=== PATIENT | female | born 1970 | race American Indian/Alaskan Native ===

== ENCOUNTER 2018-03-10 16:49 | Emergency (ER) | payer SELFPAY ==
[2018-03-10 17:32] VITALS: BP 105/67
[2018-03-10 18:18] LABS: Bilirubin,Urine NEG (Negative); Blood,Urine NEG (Negative); Color,Urine Amber (Yellow); Mucus,Urine 1+ /HPF
== END 2018-03-10 19:20 | disposition left against medical advice (07) ==
LOC: ED 16:49
DX: R10.9 Unspecified abdominal pain (principal); Z53.21 Procedure and treatment not carried out due to patient leaving prior to being seen by health care provider
CPT/HCPCS: 81001

== ENCOUNTER 2018-06-10 13:24 | Emergency (ER) | payer OTHER ==
[2018-06-10 13:59] VITALS: BP 126/74
--- NOTE | 2018-06-10 14:02 | Emergency Department Report ---
Chief Complaint: Abdominal Pain Stated Complaint: ABD LOWER PAIN/BARIATRIC PATIENT Time Seen by Provider: 06/10/18 13:58 - HPI History of Present Illness: pt presents with LLQ abd pain and epigastric abd pain no N/V/D no fever foul smelling urine denies dysuria vaginal discharge states it is white no itching, burning, lesions hx of STD- chlamydia and gonorrhea pt is sexually active, pt is with a new partner no PMHx PSHx gastric bypass, hysterecomy, and cholecystecomy MSE screening note: Focused history and physical exam performed. Due to findings the following was ordered: CBC, CMP, lipase, wet prep, UA, G/C, and CT abd/pelvis with IV contrast ED Disposition for MSE Condition: Stable Instructions: Abdominal Pain (ED)
[2018-06-10 14:31] LABS: Basophils # (Auto) 0.1 K/mm3 (0.0-0.1); Basophils % (Auto) 0.9 % (0.0-1.8); Eosinophils # (Auto) 0.1 K/mm3 (0.0-0.4); Eosinophils % (Auto) 1.1 % (0.0-4.3); Hematocrit 38.9 % (30.3-42.9); Hemoglobin 12.9 gm/dl (10.1-14.3); Lymphocytes # (Auto) 2.8 K/mm3 (1.2-5.4); Lymphocytes % (Auto) 42.5 % (13.4-35.0); Mean Corpuscular HGB Conc 33 % (30-34); Mean Corpuscular Volume 91 fl (79-97); Monocytes # (Auto) 0.4 K/mm3 (0.0-0.8); Monocytes % (Auto) 6.5 % (0.0-7.3); Platelet Count 270 K/mm3 (140-440); Red Blood Count 4.28 M/mm3 (3.65-5.03); Red Cell Distribution Width 12.8 % (13.2-15.2)
[2018-06-10 14:36] LABS: Bacteria,Urine 1+ /HPF (Negative); Bilirubin,Urine NEG (Negative); Blood,Urine NEG (Negative); Color,Urine Yellow (Yellow); Mucus,Urine FEW /HPF; Protein,Urine <15 mg/dL mg/dL (Negative)
[2018-06-10 14:41] LABS: Alanine Aminotransferase 22 units/L (7-56); Albumin 3.7 g/dL (3.9-5); BUN/Creatinine Ratio 8; Blood Urea Nitrogen 5 mg/dL (7-17); Calcium 8.9 mg/dL (8.4-10.2); Hemolysis Index 46
== END 2018-06-10 18:51 | disposition left against medical advice (07) ==
LOC: ED 13:24
DX: R10.30 Lower abdominal pain, unspecified (principal); Z53.21 Procedure and treatment not carried out due to patient leaving prior to being seen by health care provider
CPT/HCPCS: 36415; 80053; 81001; 83690; 85025